=== PATIENT | male | born 2000 | race Caucasian/White ===

== ENCOUNTER 2025-06-04 15:41 | Emergency (ER) | payer BC, SELFPAY ==
[2025-06-04] VITALS (12 sets, daily range): BP systolic 176–181; BP diastolic 110–112; PULSE 70–107; RESP 16–22; TEMP 35.9; O2SAT 96–99; BMI 35.9
--- OUTSIDE RECORDS SUMMARY | 2025-06-04 15:43 | XMS_ITS | Clinical Summary ---
Author Organization [facility] Address [address] [place] [id number] Care Team Providers Care Store Specialist Name Role Phone Alfred Souza MD Primary Care Provider [phone] Allergies Active Allergy Reactions Criticality Noted Date Comments Azithromycin Nausea And Vomiting 02/06/2013 Medications FLUoxetine (PROZAC) 40 mg capsuleIndicati ons:Major depressive disorder, recurrent, moderate (HC) Take 1 capsule by mouth every morning. 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 Obesity Recurrent infections Overview (09/16/2011): Staph Immunizations Immunization Administration Dates Next Due DTaP 01/30/2004,06/09/2003 HPV 9 (Gardasil 9) 09/23/2018,04/29/2017 Hepatitis B (Peds) 06/28/2003 Inactivated Polio Vaccine 01/30/2004,06/28/2003 Influenza Virus, Unspecified 08/04/2018 MENINGOCOCCAL VACCINE 2 VIAL [id number] (MENVEO) 0 04/29/2017 MMR 01/30/2004,06/28/2003 Tdap 03/14/2011 Family History Medical History Relation Name Comments Alcoholism Father Hyperlipidemia Father Hypertension Father Allergies Maternal Aunt Diabetes Maternal Grandmother Multiple myeloma Maternal Grandmother Thyroid Disease Maternal Grandmother Allergies Maternal Uncle Depression Maternal Uncle Allergies Mother Depression Mother Thyroid Disease Mother Lung cancer Paternal Grandfather Dementia Paternal Grandmother Diabetes Paternal Grandmother Heart failure Paternal Grandmother Hyperlipidemia Paternal Grandmother Hypertension Paternal Grandmother Relation Name Status Comments Father Maternal Aunt Maternal Grandmother Maternal Uncle Mother Paternal Grandfather Paternal Grandmother Social History Tobacco Use Types Packs/Day Years Used Date Smoking Tobacco: Never Smokeless Tobacco: Never Tobacco Cessation:Counseling Given: Yes Comments:no exposure Alcohol Use Standard Drinks/Week Comments No 0 (1 standard drink = 0.6 oz pur e alcohol) PHQ-2 Answer Date Recorded PHQ-2 Score 2 11/22/2018 Sex and Gender Information Value Date Recorded Sex Assigned at Not on file Legal Sex Male 5:50 AM RN ASSESSMENT Gender Identity Not on file Sexual Orientation Not on file Obstetrics History Last Filed Vital Signs Vital Sign Reading Time Taken Comments Blood Pressure 141/83 09/23/2018 12:54 PM RN ASSESSMENT Pulse 72 09/23/2018 12:52 PM RN ASSESSMENT Temperature 36.8 C (98.3 F) 09/23/2018 12:52 PM RN ASSESSMENT Respiratory Rate 20 01/09/2016 10:29 AM CDT Oxygen Saturation 98% 09/23/2018 12:52 PM RN ASSESSMENT Inhaled Oxygen Concentration - - Weight 140.2 kg (309 lb) 09/23/2018 12:52 PM RN ASSESSMENT Height 187.7 cm (6' 1.9) 09/23/2018 12:52 PM CS T Body Mass Index 39.78 09/23/2018 12:52 PM RN ASSESSMENT Plan of Treatment Health Maintenance Due Date Last Done Comments Hepatitis B series for 19+ (2 of 3 - 3-dose series) 07/26/2003 06/28/2003 HIV for age 15-65 2013 Hepatitis C screening for age 18-79 2016 HPV series for age 9-45 (3 - Male 3-dose series) 12/16/2018 09/23/2018, 04/29/2017 BMI (ht and wt on same day) for age 18+ 09/23/2019 09/23/2018, 12/16/2017, 04/29/2017 Depression screening for age 12+ 09/23/2019 09/23/2018, 03/14/2018, 12/16/2017, Additional history exists Tetanus booster 03/14/2021 03/14/2011 COVID-19 vaccine series (2023- season) 2025 Influenza Vaccine (#1) 2025 08/04/2018 RSV vaccine for adults or (1 - 1-dose 75+ series) 2073 Pneumococcal series for age 6-49 Aged Out No longer eligible based on patient's age to complete this topic Insurance [place] [id number] [place] [id number] Care Teams Store Specialist Relationship Specialty Start Date End Date Alfred Souza MD [address] [place] [address] PCP - General Family Practice 04/29/17
--- NOTE | 2025-06-04 19:04 | CRLHL7_ITS ---
For Patients: As a result of the Century Cures Act, medical imaging exams and procedure reports are released immediately into your electronic medical record. You may view this report before your referring provider. If you have questions, please contact your health care provider. INDICATION: Right lower quadrant pain periumbilical pain TECHNIQUE: CT abdomen and pelvis with 141 mL Isovue 370 intravenous contrast. COMPARISON: None. FINDINGS: Lower chest: Unremarkable. Liver: Fatty appearance of the liver. Gallbladder and bile ducts: No stones or inflammation. No biliary dilatation. Pancreas: Unremarkable. No mass or inflammation. Spleen: Normal in size. No masses. Adrenal glands: Normal in size. No nodules. Kidneys: Punctate nonobstructing left renal calculus too small to characterize low-attenuation lesions in the left kidney GI tract: Unremarkable. Normal in caliber. No sign of mass or inflammation. Normal appendix. Large amount of stool in the right colon Vasculature: Abdominal aorta is normal in caliber. Lymph nodes: No lymphadenopathy. Peritoneum/Abdominal Wall: Unremarkable. No sign of mass or infiltration. No free air or significant free fluid. Pelvis: Urinary bladder incompletely distended with wall thickening. Bones: Nonspecific patchy sclerosis within the sacrum. No highly suspicious lesions are seen. IMPRESSION: 1. No acute findings in the abdomen or pelvis normal appendix. Abundant stool in the right colon. Please note that all CT scans at this facility use dose modulation, iterative reconstruction, and/or weight-based dosing when appropriate to reduce radiation dose to as low as reasonably achievable. Dictated by Martina Gavin MD @ 06/04/2025 8:38:00 PM (Electronically Signed)
[2025-06-04 19:19] LABS: Appearance Urine Clear (Clear)
[2025-06-04] MEDS: MORPHINE 4 MG/ML INJ IVP ×2 (19:23→20:35)
[2025-06-04 19:29] LABS: Hematocrit* 45.5 % (37.0-53.0); Hemoglobin* 15.5 gm/dL (13.5-17.5); Immature Granulocytes Pct Auto 0.2 %; Mean Corpuscular HGB Conc 34 gm/dL (32-36); Mean Corpuscular Hemoglobin 31 pg (26-34); Mean Corpuscular Volume 91 fL (80-100); RDW Coefficient of Variation % 11.5 % (11.5-15.5); Red Blood Count* 5.03 m/uL (4.30-5.90); White Blood Count* 14.94 K/uL (4.50-11.00)
[2025-06-04 19:35] LABS: Immature Granulocytes Abs Auto 0.00 K/uL (0.00-0.30); Lymphocytes Absolute Auto 0.70 K/uL (0.90-2.90); Slide Review Reflex No
--- NOTE | 2025-06-04 19:42 | ED.ABDPAIN ---
HPI - Abdominal Pain General Date Seen: 06/04/25 Chief Complaint: Abdominal Pain Stated Complaint: Abdominal Pain Time Seen by Provider: 06/04/25 17:39 Source: patient Mode of arrival: ambulatory Limitations: no limitations History of Present Illness HPI narrative: Patient is a 24-year-old male presenting to the emergency department for abdominal pain. States abdominal pain began a few hours ago. States it is throughout his abdomen but most notably at his periumbilical region and radiates down to his right lower quadrant. He denies ever having symptoms like this. States he has previously had a kidney stone but that pain was a more sharp severe pain in this is more of a dull ache. Has had some nausea and has had a couple episodes of emesis but is not currently feeling nauseated. There is no blood in his emesis. Also an episode of nonbloody diarrhea. No history of abdominal issues. Nothing seems to make the pain better or worse. Has tried some [id number] pain medication. Denies fevers, chills, chest pain, shortness of breath, lightheadedness, dizziness, weakness, numbness, testicular pain. Related Data Home Medications ?Medication ?Instructions ?Recorded ?Confirmed bupropion HCl 150 mg 24 hr tablet, 150 mg PO DAILY 06/04/25 06/04/25 extended release bupropion HCl 300 mg 24 hr tablet, 300 mg PO DAILY 06/04/25 06/04/25 extended release citalopram 20 mg tablet 20 mg PO DAILY 06/04/25 06/04/25 Allergies Allergy/AdvReac Type Severity Reaction Status Date / Time azithromycin Allergy Mild Verified 06/04/25 15:52 Exam Const: Vital Signs, click to edit/add: Vital Signs - 24 hr 06/04/25 15:49 06/04/25 18:28 06/04/25 18:29 Temperature 96.6 F L Pulse Rate 76 75 Pulse Rate [Pulse Oximeter] 87 Respiratory Rate 22 16 Blood Pressure 181/112 H Blood Pressure [Ri ght Upper Arm] 179/110 H Pulse Oximetry 98 97 97 Oxygen Delivery Me thod Room Air 06/04/25 18:30 06/04/25 18:45 06/04/25 19:00 Temperature Pulse Rate 70 80 86 Pulse Rate [Pulse Oximeter] Respiratory Rate Blood Pressure Blood Pressure [Ri ght Upper Arm] Pulse Oximetry 97 97 98 Oxygen Delivery Me thod 06/04/25 19:23 06/04/25 19:45 06/04/25 19:46 Temperature Pulse Rate 80 107 H Pulse Rate [Pulse Oximeter] Respiratory Rate Blood Pressure Blood Pressure [Ri ght Upper Arm] Pulse Oximetry 98 99 99 Oxygen Delivery Me thod 06/04/25 20:00 06/04/25 20:15 06/04/25 20:17 Temperature Pulse Rate 93 94 95 Pulse Rate [Pulse Oximeter] Respiratory Rate 16 Blood Pressure 176/110 H Blood Pressure [Ri ght Upper Arm] Pulse Oximetry 96 96 97 Oxygen Delivery Me thod Course Vital Signs Vital signs: Initial Vital Signs Temperature 96.6 F L 06/04/25 15:49 Temperature Source Temporal Artery Scan 06/04/25 15:49 Pulse Rate 87 06/04/25 15:49 Pulse Rhythm Regular 06/04/25 15:49 Respiratory Rate 22 06/04/25 15:49 Blood Pressure 179/110 H 06/04/25 15:49 Blood Pressure Mean 133 H 06/04/25 15:49 Blood Pressure Position Sitting 06/04/25 15:49 Pulse Oximetry 98 06/04/25 15:49 Oxygen Delivery Method Room Air 06/04/25 15:49 Vital Signs Temperature 96.6 F L 06/04/25 15:49 Pulse Rate 87 06/04/25 15:49 Respiratory Rate 22 06/04/25 15:49 Blood Pressure 179/110 H 06/04/25 15:49 Pulse Oximetry 98 06/04/25 15:49 Oxygen Delivery Method Room Air 06/04/25 15:49 Temperature 96.6 F L 06/04/25 15:49 Pulse Rate 95 06/04/25 20:17 Respiratory Rate 16 06/04/25 20:00 Blood Pressure 176/110 H 06/04/25 20:15 Pulse Oximetry 97 06/04/25 20:17 Oxygen Delivery Method Room Air 06/04/25 15:49 Medications Administered Medications: Discontinued Medications Generic Name Dose Route Start Last Admin Trade Name Freq PRN Reason Stop Dose Admin Morphine Sulfate 4 mg 06/04/25 19:04 06/04/25 19:23 Morphine 4 Mg/Ml Inj IVP 06/04/25 19:05 4 mg ONCE ONE Administration Morphine Sulfate 4 mg 06/04/25 19:57 06/04/25 20:35 Morphine 4 Mg/Ml Inj IVP 06/04/25 19:58 4 mg ONCE ONE Administration MDM - Abdominal Pain MDM Narrative Medical decision making narrative: Patient is a 24-year-old male presenting to the emergency department for abdominal pain. Pain is in his periumbilical and right lower quadrant. With location of pain appendicitis is time a differential. He is not having any testicular pain and testicular torsion seems unlikely. Based on location pancreatitis, gallbladder disease, diverticulitis seem less likely. Will check him for UTI also. CBC, CMP, urinalysis all ordered along with a CT scan of his abdomen and pelvis. Also do viral swabs and give him some morphine for pain. Lab returned does showed of a white count 14.94 but overall he looks well. I do not believe he is septic at this time. Urinalysis shows no signs of UTI. Viral swabs are in negative. CMP shows no concerning findings. CT scan reviewed by myself and the radiologist shows abundant stool in the right colon consistent with where his pain is. This is likely the cause of his pain. Do believe he is safe for discharge and they are agreeable to this plan. Lab Data Labs: Lab Results 06/04/25 06/04/25 Range/Units 19:08 19:15 WBC 14.94 H (4.50-11.00) K/uL RBC 5.03 (4.30-5.90) m/uL Hgb 15.5 (13.5-17.5) gm/dL Hct 45.5 (37.0-53.0) % MCV 91 (80-100) fL MCH 31 (26-34) pg MCHC 34 (32-36) gm/dL RDW Coeff of Alli 11.5 (11.5-15.5) % Plt Count 213 (140-440) K/uL Neut % (Auto) 92.7 H (42.0-72.0) % Lymph % (Auto) 4.5 L (20-44) % [place] % (Auto) 2.5 (0.0-11.0) % Eos % (Auto) 0.0 (0.0-7.0) % Baso % (Auto) 0.1 (0.0-3.0) % Neut # (Auto) 13.80 H (1.7-7.0) K/uL Lymph # (Auto) 0.70 L (0.90-2.90) K/uL Webster # (Auto) 0.40 (0.00-0.90) K/UL Eos # (Auto) 0.00 (0.00-0.50) K/uL Baso # (Auto) 0.00 (0.00-0.30) K/uL Abs Immat Gran (auto) 0.00 (0.00-0.30) K/uL Imm/Tot Granulo (auto) 0.2 % Sodium 141 (135-149) mmol/L Potassium 4.1 (3.6-5.1) mmol/L Chloride 105 (96-114) mmol/L Carbon Dioxide 27 (20-32) mmol/L Anion Gap 9 (7-15) mEq/L BUN 13 (5-24) mg/dL Creatinine 0.8 (0.5-1.5) mg/dL Estimated Creat Clear 167.24 Estimated GFR 125 ml/min Glucose 122 H (60-115) mg/dL Calcium 9.2 (8.4-10.6) mg/dL Total Bilirubin 0.5 (0.1-1.5) mg/dL AST 32 (12-35) U/L ALT 41 (4-50) U/L Alkaline Phosphatase 81 (40-150) U/L Total Protein 8.4 H (6.0-8.3) g/dL Albumin 4.9 (3.3-5.0) g/dL Lipase 37 (23-300) U/L Urine Color Yellow (Yellow) Urine Appearance Clear (Clear) Urine pH 6.5 (5.0-8.5) Ur Specific [place] >= 1.030 (1.000-1.030) Urine Protein 1+ A (Negative) Urine Glucose (UA) Negative (Negative) Urine Ketones Negative (Negative) Urine Blood Negative (Negative) Urine Nitrite Negative (Negative) Urine Bilirubin Negative (Negative) Urine Urobilinogen 0.2 (0.2-1.0) Ur Leukocyte Esterase Negative (Negative) Urine RBC 0-2 (0-2) Urine WBC 0-2 (0-5) Ur Squamous Epith Cells Few (None-Few) Urine Bacteria None (None) SARS-CoV-2 (PCR) Negative SARS-CoV-2 (Negative) Influenza Type A (PCR) Negative PCR FLU A (Negative) Influenza Type B (PCR) Negative PCR FLU B (Negative) RSV (PCR) Negative PCR RSV (Negative) Imaging Data CT scan abdomen and pelvis: Attestation: I have reviewed the pertinent imaging results. Radiologist's impression: 1. No acute findings in the abdomen or pelvis normal appendix. Abundant stool in the right colon. Please note that all CT scans at this facility use dose modulation, iterative reconstruction, and/or weight-based dosing when appropriate to reduce radiation dose to as low as reasonably achievable. Dictated by Martina Gavin MD @ 06/04/2025 8:38:00 PM Discharge Plan Discharge Clinical Impression: Constipation Qualifiers: Constipation type: unspecified constipation type Qualified Code(s): K59.00 - Constipation, unspecified Patient Disposition: Home, Self-Care Condition: Stable Instructions: Constipation (DC) Additional Instructions: I do believe your symptoms are related to your constipation. Recommend using stool softeners. Recommend close follow-up with your primary care provider. Return to emergency department for new or worsening symptoms Prescriptions: No Action citalopram 20 mg tablet 20 mg PO DAILY bupropion HCl 300 mg tablet extended release 24 hr 300 mg PO DAILY bupropion HCl 150 mg tablet extended release 24 hr 150 mg PO DAILY Follow Up/Referrals: Mich Molina DO [Primary Care Provider, Pediatrics] Stand Alone Forms: Logical Appsth Info Instructions
[2025-06-04 19:45] LABS: Albumin* 4.9 g/dL (3.3-5.0); Chloride* 105 mmol/L (96-114); Potassium* 4.1 mmol/L (3.6-5.1); Sodium* 141 mmol/L (135-149)
[2025-06-04 19:48] LABS: Alanine Aminotransferase* 41 U/L (4-50); Alkaline Phosphatase* 81 U/L (40-150); Anion Gap 9 mEq/L (7-15); Aspartate Amino Transferase* 32 U/L (12-35); Bilirubin Total* 0.5 mg/dL (0.1-1.5); Blood Urea Nitrogen* 13 mg/dL (5-24); Carbon Dioxide* 27 mmol/L (20-32); Creatinine* 0.8 mg/dL (0.5-1.5); Est. Creatinine Clearance* 167.24; Estimated Glomerular Filt Rate 125 ml/min; Total Protein* 8.4 g/dL (6.0-8.3)
[2025-06-04 19:49] LABS: Calcium* 9.2 mg/dL (8.4-10.6); Glucose* 122 mg/dL (60-115)
[2025-06-04 20:08] LABS: PCR FLU A Negative PCR FLU A (Negative); PCR FLU B Negative PCR FLU B (Negative); PCR RSV Negative PCR RSV (Negative); SARS PCR* Negative SARS-CoV-2 (Negative)
== END 2025-06-04 21:05 | disposition home or self-care (01) ==
PROVIDERS: Emergency Provider Student in an Organized Health Care Education/Training Program; PCP Pediatrics
DX: K59.00 Constipation, unspecified (principal)
CPT/HCPCS: 36415; 74177; 80053; 81001; 83690; 85025; 87631; 94761; 96374; 96376; 99284; J2270; Q9967